=== PATIENT | female | born 1990 | race Caucasian/White ===

== ENCOUNTER 2016-09-18 08:56 | Emergency (ER) | payer OTHER ==
[~2016-09-18] VITALS: Ht 167.6 cm; Wt 64.7 kg
[2016-09-18] MEDS ORDERED: FLOVENT 11120 INHALA IH (09:58)
[2016-09-18] MEDS ORDERED: ADDERALL XR 1010 MG PO (09:58)
[2016-09-18 10:03] LABS: EOSINOPHIL (%) 2.4 % (0-5); EOSINOPHIL COUNT 0.2 K/uL (0-0.3); HEMATOCRIT 39.9 % (36.0-46.0); IMMATURE GRANULOCYTE (%) 0.3 % (0.0-0.7); LYMPHOCYTE COUNT 1.1 K/uL (1.0-2.8); MCH 30.4 PG (29.0-34.0); MCHC 32.8 G/DL (30.0-36.0); MCV 92.6 FL (83-99); MEAN PLAT.VOLUME 9.9 uM^3 (9.5-12.4); MONOCYTE (%) 7.4 % (3-12); MONOCYTE COUNT 0.5 K/uL (0-0.8); NEUTROPHIL (%) 73.5 % (45-76); PLATELET COUNT 322 K/uL (156-360); RBC DIS.WIDTH-CV 11.9 % (11.8-14.6); RBC DIS.WIDTH-SD 40.9 % (39-53); RED BLOOD COUNT 4.31 M/uL (3.80-5.20); WHITE BLOOD COUNT 6.8 K/uL (4.1-10.2)
[2016-09-18 10:10] LABS: CHLORIDE 103 mEq/L (99-109); POTASSIUM 4.4 mEq/L (3.7-5.4); SODIUM 137 mEq/L (136-147)
[2016-09-18 10:12] LABS: GLUCOSE 98 mg/dL (70-99)
[2016-09-18 10:13] LABS: ANION GAP 9 MEQ/L (2-14)
[2016-09-18 10:14] LABS: TOTAL BILIRUBIN 0.6 mg/dL (0.0-1.0)
[2016-09-18 10:16] LABS: ALKALINE PHOSPHATASE 72 IU/L (3-129); GFR ESTIMATE (CALCULATED) > 59 mL/min/
[2016-09-18 10:17] LABS: UREA NITROGEN (BUN) 6 mg/dL (9-23)
[2016-09-18 10:19] LABS: LIPASE 12 U/L (1.0-51.0)
[2016-09-18 10:29] LABS: QUANTITATIVE HCG < 4.0 MIU/ML
[2016-09-18] MEDS ORDERED: TYLENOL WITH C1 EACH PO (11:57)
[2016-09-18] MEDS ORDERED: ZOFRAN ODT4 MG PO (11:57)
[2016-09-18 12:01] VITALS: BP 100/71
== END 2016-09-18 12:14 | disposition home or self-care (01) ==
LOC: EME 08:56
PROVIDERS: Emergency Medicine
DX: F17.200 Nicotine dependence, unspecified, uncomplicated (principal)
CPT/HCPCS: 80053; 83690; 84702; 85025; 99281; 99285; J1885; J2405; J7030